=== PATIENT | male | born 1955 | race American Indian/Alaskan Native ===

== ENCOUNTER 2021-11-14 10:22 | Emergency (ER) | payer MEDICARE ==
[2021-11-14 12:00] VITALS: BP 162/81
--- NOTE | 2021-11-14 13:54 | XRay Report ---
LEFT FOOT 3 VIEW(S) INDICATION / CLINICAL INFORMATION: fall. slip and fall COMPARISON: None available. FINDINGS: BONES / JOINT(S): No acute fracture or subluxation. Mild DJD of the first MTP. There is a bony excres cence involving the mid foot, presumably from one of the cuneiforms. This may be sequela of prior tra phani. SOFT TISSUES: Calcific atherosclerosis ADDITIONAL FINDINGS: None. Signer Name: Jules Hannah DO Signed: 11/14/2021 1:50 PM Workstation Name: [id number]
--- NOTE | 2021-11-14 14:57 | Emergency Department Report ---
ED Lower Extremity HPI - General Chief Complaint: Fall Stated Complaint: FOOT PAIN Time Seen by Provider: 11/14/21 13:07 Source: patient Mode of arrival: Ambulatory Limitations: No Limitations - History of Present Illness Initial Comments: 66-year-old male gentleman department complaining of slip and fall about 3 weeks ago resulting in injury to the left foot at the base of the first phalanges/hallux which continues to aggravate him today. Reported some previous swelling which has since improved and feels that there was some discoloration or bruising which is improving but pain still present. Reports no numbness or tingling. MD Complaint: foot injury Injury: Foot: Left Type of Injury: blunt Place: home Severity: mild Improves With: nothing Worsens With: nothing Context: fall Associated Symptoms: swelling ED Review of Systems ROS: Stated complaint: FOOT PAIN Other details as noted in HPI Comment: All other systems reviewed and negative ED Physical Exam - General Limitations: No Limitations General appearance: alert, in no apparent distress - Head Head exam: Present: atraumatic, normocephalic - Eye Eye exam: Present: normal appearance, PERRL, EOMI Pupils: Present: normal accommodation - ENT ENT exam: Present: mucous membranes moist - Neck Neck exam: Present: normal inspection - Respiratory Respiratory exam: Present: normal lung sounds bilaterally. Absent: respiratory distress - Cardiovascular Cardiovascular Exam: Present: regular rate, normal rhythm. Absent: systolic murmur, diastolic murmur, rubs, gallop - GI/Abdominal GI/Abdominal exam: Present: soft, normal bowel sounds - Rectal Rectal exam: Present: deferred - Extremities Exam Extremities exam: Present: normal inspection - Back Exam Back exam: Present: normal inspection - Neurological Exam Neurological exam: Present: alert, oriented X3 - Psychiatric Psychiatric exam: Present: normal affect, normal mood - Skin Skin exam: Present: warm, dry, intact, normal color. Absent: rash ED Course Vital Signs 11/14/21 11:57 Temperature 69 F L Pulse Rate 70 Blood Pressure 162/81 [Right] O2 Sat by Pulse 100 Oximetry ED Lower Extremity MDM - Radiology Data Radiology results: report reviewed [facility] [address] [place] [address] XRay Report Signed Patient: NIDHI BLACKBURN MR#: [id number] : 1955 Acct:[id number] Age/Sex: 66 / M ADM Date: 11/14/21 Loc: ED Attending Dr: Ordering Physician: JH HAWTHORNE Date of Service: 11/14/21 Procedure(s): XR foot 3+V LT Accession Number(s): [id number] cc: JH HAWTHORNE Fluoro Time In Minutes: LEFT FOOT 3 VIEW(S) INDICATION / CLINICAL INFORMATION: fall. slip and fall COMPARISON: None available. FINDINGS: BONES / JOINT(S): No acute fracture or subluxation. Mild DJD of the first MTP. There is a bony excrescence involving the mid foot, presumably from one of the cuneiforms. This may be sequela of prior trauma. SOFT TISSUES: Calcific atherosclerosis ADDITIONAL FINDINGS: None. Signer Name: Jules Hannah DO Signed: 11/14/2021 1:50 PM Workstation Name: [id number] Transcribed By: NS Dictated By: JULES HANNAH DO Electronically Authenticated By: JULES HANNAH DO Signed Date/Time: 11/14/21 1350 DD/ 1347 TD/TT: Critical care attestation.: If time is entered above; I have spent that time in minutes in the direct care of this critically ill patient, excluding procedure time. ED Disposition Clinical Impression: Foot contusion Disposition: 01 HOME / SELF CARE / HOMELESS Is pt being admited?: No Does the pt Need Aspirin: No Condition: Stable Instructions: Contusion, [id number], Foot Contusion, [id number], How to Use Cold Therapy, Foot Contusion Additional Instructions: Seen by emergency department for a foot injury due to a fall. X-rays were obtained which showed no evidence of any fractures or or dislocation please continue to ice your foot and treat your discomfort with some [id number] Tylenol and or Motrin as directed on the packaging. May follow-up with the listed provider or your primary care provider to follow on in the recovery of this injury. Referrals: [facility] [Provider Group] - 3-5 Days
== END 2021-11-14 15:44 | disposition home or self-care (01) ==
LOC: ED 10:22
DX: S90.32XA Contusion of left foot, initial encounter (principal); W18.39XA Other fall on same level, initial encounter; Y93.89 Activity, other specified; Y92.89 Other specified places as the place of occurrence of the external cause; Y99.8 Other external cause status
CPT/HCPCS: 99283